=== PATIENT | male | born 1950 | race Caucasian/White ===

== ENCOUNTER 2024-06-30 07:58 | Day surgery (SDC) | payer MEDICARE ==
[2024-06-30] VITALS (10 sets, daily range): BP systolic 115–145; BP diastolic 73–85; TEMP 97.7–98.1; O2SAT 92–95
[~2024-06-30] VITALS: Ht 177.8 cm; Wt 115.2 kg
[~2024-06-30 07:58] MED LIST: ACETAMINOPHEN 1000MG 100ML IV BAG As Ordered ONE; AMLO1TAB25 PO; ASCO500C3 PO; ATOR1TAB21 PO; AVOD0.5C PO; CELE0.09 PO; COLA100C5 PO; ECHI125T PO; ECOT81TA5 PO; FLUT1BLS8; FOLI400T13 PO; GARL500C6 PO; HYDR12CA PO; LIDOCAINE 2% 100MG/5ML SDV (FOR ANES.) As Ordered ONE; LOSA100T46 PO; META28.32 PO; METO1TAB7 PO; MONT10TA97 PO; MULTTAB61 PO; OMEG10002 PO; ONDANSETRON 4MG 2ML VIAL As Ordered ONE; POTA99CA2 PO; ROCURONIUM BROMIDE 50MG/5ML VIAL As Ordered ONE; SUGAMMADEX SODIUM 500 MG/5 ML VIAL (BRIDION) As Ordered ONE; TAMS1CAP17 PO; UNRESOLVED CLARIFICATION ENTRY XX SCH; VASOPRESSIN INJ 20UNITS/ML 1ML VIAL As Ordered ONE; VITA100093 PO; dexmedeTOMIDine (4MCG/ML)200MCG/50ML BTL (PRECEDEX) As Ordered ONE; fentaNYL 100 MCG/2 ML INJECTION As Ordered ONE; propofoL 200 MG/20 ML VIAL As Ordered ONE
[2024-06-30] MEDS ORDERED: LR 1,000 ML IV SCH (08:25)
[2024-06-30] MEDS ORDERED: ONDANSETRON 4MG 2ML VIAL IV PRN ×2 (08:35→15:00)
[2024-06-30] MEDS ORDERED: PERCOCET 5MG/325MG TAB PO PRN ×2 (08:35)
[2024-06-30] MEDS ORDERED: ENTER DRUG NAME HERE (PATIENT'S OWN MED) INH SCH (09:00)
[2024-06-30] MEDS: ceFAZolin SOD 2 GM in IV 1 EA IV ONE (09:05)
[2024-06-30] MEDS: HEPARIN SOD (PORCINE) 5000UNITS/ML 1ML VIAL/SYRINGE As Ordered ONE (09:20)
[2024-06-30] MEDS ORDERED: HYDROmorphone HCL 2MG/ML 1ML VIAL As Ordered ONE (09:28)
[2024-06-30] MEDS: ceFAZolin 2 GM/D5W 50 ML IV BAG As Ordered ONE (13:33)
[2024-06-30] MEDS: LIDOCAINE 1% SDV 30ML VIAL As Ordered ONE (14:53)
[2024-06-30] MEDS ORDERED: HYDROMORPHONE HCL 0.5 MG/ 0.5 ML SYRINGE IV PRN (15:00)
[2024-06-30] MEDS ORDERED: oxyCODONE 5MG TAB PO PRN (15:00)
[2024-06-30] MEDS ORDERED: fentaNYL 100 MCG/2 ML INJECTION IV PRN (15:00)
[2024-06-30 15:38] LABS: HEMATOCRIT 40.3 % (42.0-52.0); HEMOGLOBIN 13.1 g/dl (13.5-17.5); MEAN CORPUSCULAR HEMOGLOBIN 27.9 pg (27.0-33.0); MEAN CORPUSCULAR HGB CONC 32.5 g/dl (32.0-36.5); MEAN CORPUSCULAR VOLUME 85.9 fl (80.0-96.0); PLATELET COUNT, AUTOMATED 271 10^3/uL (150-450); RED BLOOD COUNT 4.69 10^6/uL (4.30-6.10); WHITE BLOOD COUNT 18.5 10^3/uL (4.0-10.0)
[2024-06-30 16:04] LABS: BLOOD UREA NITROGEN 14 MG/DL (9-23); CALCIUM LEVEL 8.9 MG/DL (8.3-10.6); CARBON DIOXIDE LEVEL 27 MMOL/L (20-31); CHLORIDE LEVEL 108 MMOL/L (98-107); CREATININE FOR GFR 1.01 MG/DL (0.70-1.30); GLOMERULAR FILTRATION RATE > 60.0 (>42); GLUCOSE, FASTING 172 MG/DL (74-106); POTASSIUM SERUM 4.2 MMOL/L (3.5-5.1); SODIUM LEVEL 140 MMOL/L (136-145)
[2024-06-30] MEDS: SODIUM CHLORIDE 0.9% 1000 ML IV ONE (16:34)
[2024-06-30] MEDS: HEPARIN SOD (PORCINE) 5000UNITS/ML 1ML VIAL/SYRINGE SQ ONE (16:35)
[2024-06-30] MEDS: LR 1,000 ML IV SCH (16:36)
[2024-06-30] MEDS: NS 1,000 ML IV SCH (16:36)
[2024-06-30] MEDS: DOCUSATE SODIUM 100MG CAPSULE PO SCH (16:37)
[2024-06-30] MEDS: ceFAZolin SOD 1 GM in DEXTROSE 5% (D5W) ADV/MINI-BAG 50 ML IV SCH (17:42)
[2024-07-01] VITALS: BP 139/71; TEMP 98.8; O2SAT 94
[2024-07-01 04:00] VITALS: TEMP 99; O2SAT 96
[2024-07-01] MEDS: HEPARIN SOD (PORCINE) 5000UNITS/ML 1ML VIAL/SYRINGE SC SCH (05:52)
[2024-07-01] MEDS: ACETAMINOPHEN 325 MG TAB PO PRN (06:36)
[2024-07-01 08:00] VITALS: BP 138/67; TEMP 98.4; O2SAT 94
[2024-07-01 08:04] LABS: HEMATOCRIT 36.3 % (42.0-52.0); HEMOGLOBIN 11.9 g/dl (13.5-17.5); MEAN CORPUSCULAR HGB CONC 32.8 g/dl (32.0-36.5); MEAN CORPUSCULAR VOLUME 85.4 fl (80.0-96.0); PLATELET COUNT, AUTOMATED 265 10^3/uL (150-450); RED BLOOD COUNT 4.25 10^6/uL (4.30-6.10)
[2024-07-01 08:31] LABS: BLOOD UREA NITROGEN 15 MG/DL (9-23); CALCIUM LEVEL 9.1 MG/DL (8.3-10.6); CARBON DIOXIDE LEVEL 26 MMOL/L (20-31); CHLORIDE LEVEL 108 MMOL/L (98-107); CREATININE FOR GFR 0.92 MG/DL (0.70-1.30); GLOMERULAR FILTRATION RATE > 60.0 (>42); GLUCOSE, FASTING 103 MG/DL (74-106); POTASSIUM SERUM 3.9 MMOL/L (3.5-5.1); SODIUM LEVEL 140 MMOL/L (136-145)
[2024-07-01] MEDS: hydroCHLOROthiazide 12.5 MG CAPSULE PO SCH (09:07)
[2024-07-01 09:08] VITALS: BP 135/75
[2024-07-01] MEDS: METOPROLOL SUCC (TopROL XL) 50MG **XL** TAB PO SCH (09:08)
[2024-07-01] MEDS: MONTELUKAST 10 MG TAB PO SCH (09:09)
[2024-07-01] MEDS: LOSARTAN 50MG TABLET PO SCH (09:10)
[2024-07-01] MEDS ORDERED: PERCOCET PO (09:53)
[2024-07-01] MEDS ORDERED: CIPR-249 PO (09:53)
[2024-07-01 12:00] VITALS: BP 125/70; TEMP 97.6; O2SAT 91
[2024-07-01] MEDS ORDERED: ATORVASTATIN 20 MG TAB PO SCH (21:00)
== END 2024-07-01 14:33 | disposition home or self-care (01) ==
LOC: M SDC 07:58 → EDUNIT# 07:58 → UNDOADMIN 08:35 → M RR INP 08:35 → M MS5PR 16:20 → M RR INP 16:20 → M SDC 07-01 14:33 → UNDODISIN 07-01 14:50
PROVIDERS: ATTEND Urology
DX: C61 Malignant neoplasm of prostate (principal); I10 Essential (primary) hypertension; E78.5 Hyperlipidemia, unspecified; J44.9 Chronic obstructive pulmonary disease, unspecified; G47.33 Obstructive sleep apnea (adult) (pediatric); Z79.899 Other long term (current) drug therapy; Z88.0 Allergy status to penicillin; Z88.1 Allergy status to other antibiotic agents; R60.9 Edema, unspecified
CPT/HCPCS: 36415; 38571; 55866; 80048; 85027; 86850; 86900; 86901; 88305; 88309; 96361; 96365; 96366; J0131; J0665; J0690; J1100; J1171; J2405; J2598; J3010; S2900